=== PATIENT | male | born 1990 | race Caucasian/White ===

== ENCOUNTER 2016-05-10 07:01 | Emergency (ER) | payer MEDICAID ==
[2013-06-03 18:18] VITALS: BMI 23.7
[~2016-05-10 07:01] MED LIST: ULTRAM50 MG PO
== END 2016-05-10 09:04 | disposition home or self-care (01) ==
LOC: D.ER 07:01
DX: S50.11XA Contusion of right forearm, initial encounter (principal); W20.8XXA Other cause of strike by thrown, projected or falling object, initial encounter; Y93.89 Activity, other specified; Y92.019 Unspecified place in single-family (private) house as the place of occurrence of the external cause; F17.200 Nicotine dependence, unspecified, uncomplicated

== ENCOUNTER 2016-08-18 13:34 | Emergency (ER) | payer MEDICAID ==
[2013-06-03 18:18] VITALS: BMI 23.7
== END 2016-08-18 15:48 | disposition home or self-care (01) ==
LOC: D.ER 13:34
DX: K08.89 Other specified disorders of teeth and supporting structures (principal)

== ENCOUNTER 2016-09-04 08:04 | Emergency (ER) | payer MEDICAID ==
[2013-06-03 18:18] VITALS: BMI 23.7
== END 2016-09-04 08:43 | disposition home or self-care (01) ==
LOC: D.ER 08:04
DX: L02.31 Cutaneous abscess of buttock (principal); F17.200 Nicotine dependence, unspecified, uncomplicated

== ENCOUNTER 2016-12-31 15:58 | Emergency (ER) | payer MEDICAID ==
[2013-06-03 18:18] VITALS: BMI 23.7
== END 2016-12-31 18:07 | disposition home or self-care (01) ==
LOC: D.ER 15:58
DX: L03.115 Cellulitis of right lower limb (principal); F17.200 Nicotine dependence, unspecified, uncomplicated

== ENCOUNTER 2017-11-01 15:38 | Emergency (ER) | payer MEDICAID ==
[~2017-11-01] VITALS: Ht 177.8 cm; Wt 75.0 kg
[2017-11-01 15:52] VITALS: Ht 177.8 cm; Wt 75.0 kg
[2017-11-01] MEDS ORDERED: TYLENOL W/CODEI1 TAB PO (16:53)
[2017-11-01] MEDS ORDERED: AMOXICILLIN500 M1 PO (16:53)
[2017-11-01 17:16] VITALS: BP 151/87
== END 2017-11-01 17:16 | disposition home or self-care (01) ==
LOC: D.ER 15:38
DX: K04.7 Periapical abscess without sinus (principal); F17.200 Nicotine dependence, unspecified, uncomplicated

== ENCOUNTER 2019-10-24 21:37 | Inpatient (IN) | payer MEDICAID ==
[~2019-10-24] VITALS: Ht 170.2 cm; Wt 81.8 kg
[~2019-10-24 21:37] MED LIST changes: +AMOXICILLIN500 M1 PO; +TYLENOL W/CODEI1 TAB PO
[2019-10-24 22:47] LABS: BASOPHILS 0.2 % (0-2); EOSINOPHILS 1.5 % (0-7); HEMATOCRIT 42.6 % (42.0-54.0); IMMATURE GRANULOCYTES 0.2 % (0-5); LYMPHOCYTES 16.1 % (15-50); MCH 30.3 pg (26.0-34.0); MCHC 35.2 g/dL (31.0-37.0); MCV 86.1 fL (80.0-100.0); MEAN PLATELET VOLUME 9.2 fL (7.4-10.4); MONOCYTES 6.7 % (2-11); NEUTROPHILS 75.3 % (40-80); PLATELET COUNT 255 10x3/uL (130-400); RBC 4.95 10x6/uL (4.20-6.10); RDW 12.9 % (11.5-14.5); WBC 9.2 10x3/uL (4.8-10.8)
[2019-10-24 23:00] LABS: CALC OSMOLALITY 276 mosm/kg (275-300); CALCIUM 8.4 mg/dL (8.5-10.1); CARBON DIOXIDE 29.3 mmol/L (21.0-32.0); CHLORIDE - SERUM 101 mmol/L (98-107); GLUCOSE 131 mg/dL (74-106); SODIUM 137 mmol/L (136-145); UREA NITROGEN 16 mg/dL (7-18); eGFR NON AFRICAN AMERICAN > 90 mL/min (90-120)
[2019-10-24 23:13] LABS: BILIRUBIN NEGATIVE (NEGATIVE); GLUCOSE NEGATIVE (NEGATIVE); KETONE NEGATIVE (NEGATIVE); NITRITE NEGATIVE (NEGATIVE); UROBILINOGEN NORMAL (NORMAL)
[2019-10-24 23:13] LABS: ALBUMIN 3.5 g/dL (3.4-5.0); ALKALINE PHOSPHATASE 82 U/L (30-120); ALT (SGPT) 21 U/L (10-68); AMYLASE - SERUM 52 U/L (25-115); BILIRUBIN - TOTAL 0.26 mg/dL (0.2-1.3); LIPASE 73 U/L (73-393); PROTEIN - SERUM 7.4 g/dL (6.4-8.2)
[2019-10-25] VITALS (9 sets, daily range): BP systolic 113–139; BP diastolic 67–81; Ht 170.2 cm; Wt 81.8 kg
--- NOTE | 2019-10-25 08:58 | NUR ---
PT ADMITTED TO ROOM VIA WHEELCHAIR AND ER STAFF, AT BEDSIDE, PT HERE FOR ABDOMINAL PAIN, NG TUBE TO RIGHT NARE, HOOKED UP TO LOW INTERMITTENT SUCTION, IV PATENT TO RIGHT HAND, SITE CLEAR, PT DENIES PAIN OR NEEDS AT THIS TIME, ASSESSMENT COMPLETE, SR UP X2, CALL LIGHT IN REACH, WILL CONTINUE TO MONITOR
--- NOTE | 2019-10-25 10:55 | NUR ---
PT RESTING IN BED WITH EYES CLOSED, NO S/S OF PAIN OR NEEDS NOTED, AT BEDSIDE, WILL MONITOR
--- NOTE | 2019-10-25 14:24 | NUR ---
GAVPT MORPHINE 2MG IVP FOR PAIN IN ABD, RATES PAIN 7/10
--- NOTE | 2019-10-25 17:22 | NUR ---
DR EDWARD REMOVED NG TUBE, PT WAS GIVEN CLEAR LIQUIDS, PT TOLERATING WELL
--- NOTE | 2019-10-25 20:50 | NUR ---
A&O X4. S/O AT BEDSIDE. DENIES PAIN/DISCOMFORT. TOLERATING CLEAR LIQUIDS, NO N/V. REQUESTS SMALL FULL LIQUID SNACK, CPOC.
--- NOTE | 2019-10-26 01:00 | NUR ---
REPORTS STARVATION. TOLERATING ICE CREAM, SHERBERT AND PUDDING WELL. NO N/V/DISCOMFORT. PASSING GAS. CTM.
--- NOTE | 2019-10-26 01:46 | NUR ---
I have reviewed this patient and I concur with the Shift Assessment completed by the Licensed Practical Nurse today this shift.
[2019-10-26 04:00] VITALS: BP 126/69
[2019-10-26 06:36] LABS: BASOPHILS 0.4 % (0-2); EOSINOPHILS 3.3 % (0-7); HEMOGLOBIN 14.4 g/dL (13.5-17.5); IMMATURE GRANULOCYTES 0.1 % (0-5); MCH 29.9 pg (26.0-34.0); MCHC 34.3 g/dL (31.0-37.0); MCV 87.1 fL (80.0-100.0); MEAN PLATELET VOLUME 9.3 fL (7.4-10.4); MONOCYTES 8.1 % (2-11); NEUTROPHILS 59.1 % (40-80); PLATELET COUNT 263 10x3/uL (130-400); RBC 4.82 10x6/uL (4.20-6.10); RDW 13.1 % (11.5-14.5)
[2019-10-26 06:42] LABS: WBC 6.7 10x3/uL (4.8-10.8)
[2019-10-26 06:59] LABS: APTT 37.4 SECONDS (22.8-39.4); INR 1.02 (0.85-1.17); PROTIME 13.4 SECONDS (11.6-15.0)
[2019-10-26 07:39] LABS: ALBUMIN 3.2 g/dL (3.4-5.0); ALKALINE PHOSPHATASE 82 U/L (30-120); ALT (SGPT) 20 U/L (10-68); BILIRUBIN - TOTAL 0.28 mg/dL (0.2-1.3); CALC OSMOLALITY 278 mosm/kg (275-300); CALCIUM 8.6 mg/dL (8.5-10.1); CARBON DIOXIDE 26.9 mmol/L (21.0-32.0); CHLORIDE - SERUM 103 mmol/L (98-107); CREATININE - SERUM 0.9 mg/dL (0.6-1.3); GLUCOSE 127 mg/dL (74-106); POTASSIUM - SERUM 3.9 mmol/L (3.5-5.1); PROTEIN - SERUM 7.1 g/dL (6.4-8.2); SODIUM 139 mmol/L (136-145); eGFR NON AFRICAN AMERICAN > 90 mL/min (90-120)
[2019-10-26 07:40] LABS: UREA NITROGEN 11 mg/dL (7-18)
[2019-10-26 08:50] VITALS: BP 121/71
--- NOTE | 2019-10-26 10:25 | NUR ---
PT TOLERATED REGULAR DIET FOR BREAKFAST.
--- NOTE | 2019-10-26 11:12 | NUR ---
I have reviewed this patient and I concur with the Shift Assessment completed by the Licensed Practical Nurse today this shift.
[2019-10-26 13:31] VITALS: BP 114/72
--- NOTE | 2019-10-26 16:57 | NUR ---
REMOVED PT IV FROM RIGHT HAND, CATHETER TIP INTACT, COVERED WITH GAUZE AND TAPE, TOLERATED WELL. PT SIGNED ALL NECESSARY DISCHARGE PARPERWORK. BEING ESCORTED OUT BY FAMILY. DENIES ANY NEEDS OR HELP.
== END 2019-10-26 16:58 | disposition home or self-care (01) | DRG 390 ==
LOC: D.ER 21:37 → D.MS 10-25 00:47 → D.EDHOLD 10-25 00:47 → D.MS 10-25 06:25
PROVIDERS: Family Medicine; ADMIT Family Medicine; ATTEND Family Medicine
DX: K56.609 Unspecified intestinal obstruction, unspecified as to partial versus complete obstruction (principal); K59.00 Constipation, unspecified; R10.9 Unspecified abdominal pain; F17.200 Nicotine dependence, unspecified, uncomplicated